=== PATIENT | male | born 1960 | race Caucasian/White ===

== ENCOUNTER → 2016-07-29 | Outpatient (CLI) | payer OTHER | LOC: RAD 08:36 | DX: F41.8 Other specified anxiety disorders (principal); G47.33 Obstructive sleep apnea (adult) (pediatric); M25.512 Pain in left shoulder ==

== ENCOUNTER 2016-11-25 09:00 | Outpatient (RCR) | payer OTHER | END 2017-01-12 15:57 | disposition home or self-care (01) | LOC: PT 09:00 | DX: M25.512 Pain in left shoulder (principal); M75.02 Adhesive capsulitis of left shoulder ==